=== PATIENT | female | born 2000 | race African-American/Black ===

== ENCOUNTER 2020-02-26 05:52 | Inpatient (IN) ==
[2020-02-26] MEDS ORDERED: ONDANSETRON 4 MG/2 ML VIAL IV PRN (05:59)
[2020-02-26] MEDS ORDERED: LACTATED RINGERS 1,000 ML IV ONE ×2 (05:59→17:34)
[2020-02-26] MEDS ORDERED: OXYTOCIN/LR 20 UNIT/1,000 ML BAG IV SCH (06:00)
[2020-02-26] MEDS ORDERED: LACTATED RINGERS 1,000 ML IV SCH (06:00)
[2020-02-26 06:28] LABS: Basophils % 0.2 % (0.0-0.8); Eosinophils # 0.1 10*3/uL (0.0-0.87); Eosinophils % 0.7 % (0.00-10.9); Hematocrit 30.7 VOL% (35.7-47.0); Hemoglobin 9.7 GM/DL (12.0-16.0); Immature Granulocytes Absolute 0.16 #; Lymphocytes # 2.2 10*3/uL (1.4-4.0); Lymphocytes % 13.6 % (21.3-54.2); Mean Corpuscular HGB Conc 31.6 GM/DL (32-36); Mean Corpuscular Volume 79.1 FL (87-102); Monocytes % 4.6 % (1.7-12.7); Neutrophils % 79.9 % (38.7-73.9); Platelet Count 251 T/CUMM (130-400); Red Blood Count 3.88 MC/CUMM (3.8-5.5); Red Cell Distribution Width 15.8 % (9.3-17.3); White Blood Count 16.3 T/CUMM (4-12)
[2020-02-26] MEDS ORDERED: AMPICILLIN INJ 2,000 MG in SODIUM CHLORIDE 0.9% 100 ML IV ONE (06:36)
[2020-02-26 07:02] LABS: Albumin 2.6 G/DL (3.4-5.0); Bilirubin,Total 0.4 MG/DL (0.2-1.0); Calcium 8.9 MG/DL (8.5-10.1); Osmolality,Calculated 262.4 MOS/KG (273-304); Total Protein 7.9 G/DL (6.4-8.3)
[2020-02-26] MEDS ORDERED: DINOPROSTONE VAG GEL 10 MG SYRINGE VAG ONE (08:00)
[2020-02-26] MEDS: AMPICILLIN INJ 1,000 MG in SODIUM CHLORIDE 0.9% 100 ML IV SCH ×3 (12:49→23:09)
[2020-02-26] MEDS ORDERED: BUTORPHANOL 2 MG/ML VIAL IV PRN (17:24)
[2020-02-26] MEDS ORDERED: NALOXONE 0.4 MG/ML VIAL IV PRN (17:34)
[2020-02-26] MEDS ORDERED: hydrOXYzine HCL 25 MG/1 ML VIAL IM PRN (17:34)
[2020-02-26] MEDS ORDERED: PROMETHAZINE 25 MG/1 ML VIAL IM ONE (17:34)
[2020-02-26] MEDS ORDERED: diphenhydrAMINE 50 MG/1 ML VIAL IV PRN ×2 (17:34)
[2020-02-26] MEDS ORDERED: ePHEDrine 50 MG/ML VIAL IV PRN (17:34)
[2020-02-26] MEDS ORDERED: FAMOTIDINE 20 MG/2 ML VIAL IV ONE (17:34)
[2020-02-26] MEDS ORDERED: CITRIC ACID/SODIUM CITRATE 30 ML UDCUP PO ONE (17:34)
[2020-02-26] MEDS ORDERED: fentaNYL 2 MCG/ROPIV 0.2% EPID 100 ML EPIDURAL SCH (18:00)
[2020-02-26] MEDS ORDERED: TERBUTALINE 1 MG/1 ML VIAL ONE (23:48)
[2020-02-26] MEDS ORDERED: TERBUTALINE 1 MG/1 ML VIAL SUBCUT ONE (23:48)
[2020-02-26] MEDS ORDERED: LIDOCAINE MPF 2% /EPI 20 ML VIAL ONE (23:56)
[2020-02-26] MEDS ORDERED: OXYTOCIN/LR 30 UNIT/1,000 ML BAG IV ONE (23:56)
[2020-02-26] MEDS ORDERED: MORPHINE 10 MG/10 ML VIAL ONE (23:56)
[2020-02-26] MEDS ORDERED: OXYTOCIN 10 UNIT/ML VIAL ONE (23:57)
[2020-02-27] MEDS ORDERED: OXYTOCIN/LR 30 UNIT/1,000 ML BAG IV ONE (00:01)
[2020-02-27] MEDS ORDERED: OXYTOCIN 10 UNIT/ML VIAL IM ONE (00:01)
[2020-02-27 00:38] LABS: Cord Arterial Blood HCO3 20.2 MMOL/L
[2020-02-27 00:39] LABS: Cord Venous Blood HCO3 22.1 MMOL/L; Cord Venous Blood PCO2 42.6 MMHG; Cord Venous Blood PO2 24.9 MMHG
[2020-02-27] MEDS ORDERED: MAGNESIUM HYDROXIDE SUSP 30 ML UDCUP PO PRN (00:50)
[2020-02-27] MEDS ORDERED: RHO(D) IMMUNE GLOBULIN 300 MCG SYRINGE IM ONE (00:50)
[2020-02-27] MEDS ORDERED: IBUPROFEN 800 MG TABLET PO PRN (00:50)
[2020-02-27] MEDS ORDERED: ONDANSETRON 4 MG/2 ML VIAL IV PRN (00:50)
[2020-02-27] MEDS ORDERED: OXYTOCIN/LR 20 UNIT/1,000 ML BAG IV ONE (00:50)
[2020-02-27] MEDS ORDERED: SIMETHICONE CHEW 80 MG TABLET PO PRN (00:50)
[2020-02-27] MEDS ORDERED: ACETAMINOPHEN 325 MG TABLET PO PRN (00:50)
[2020-02-27] MEDS ORDERED: LABETALOL 100 MG/20 ML VIAL IV ONE (00:57)
[2020-02-27] MEDS ORDERED: LACTATED RINGERS 1,000 ML IV SCH (01:00)
[2020-02-27] MEDS: MULTIVITAMIN (PRENATAL) TABLET PO SCH (08:56)
[2020-02-27] MEDS: METOCLOPRAMIDE 10 MG TABLET PO SCH ×2 (08:57→16:43)
[2020-02-27] MEDS: DOCUSATE SODIUM 100 MG CAPSULE PO SCH ×2 (08:57→20:36)
[2020-02-27] MEDS: FERROUS SULFATE 325 MG TABLET PO SCH (09:07)
[2020-02-27] MEDS ORDERED: MAGNESIUM CITRATE 300 ML BOTTLE PO ONE (16:48)
[2020-02-27] MEDS ORDERED: ceFAZolin 1,000 MG in SYRINGE 1 EACH IV SCH (17:00)
[2020-02-28 06:02] LABS: Basophils % 0.1 % (0.0-0.8); Eosinophils # 0.1 10*3/uL (0.0-0.87); Eosinophils % 0.7 % (0.00-10.9); Hematocrit 27.3 VOL% (35.7-47.0); Hemoglobin 8.5 GM/DL (12.0-16.0); Immature Granulocytes % 0.7 %; Immature Granulocytes Absolute 0.12 #; Lymphocytes # 1.6 10*3/uL (1.4-4.0); Lymphocytes % 9.3 % (21.3-54.2); Mean Corpuscular HGB Conc 31.1 GM/DL (32-36); Mean Corpuscular Volume 79.8 FL (87-102); Mean Platelet Volume 11.1 FL (9.6-12.0); Monocytes % 3.9 % (1.7-12.7); Neutrophils % 85.3 % (38.7-73.9); Platelet Count 214 T/CUMM (130-400); Red Blood Count 3.42 MC/CUMM (3.8-5.5); Red Cell Distribution Width 15.9 % (9.3-17.3)
[2020-02-28] MEDS: MULTIVITAMIN (PRENATAL) TABLET PO SCH (09:43)
[2020-02-28] MEDS: FERROUS SULFATE 325 MG TABLET PO SCH ×3 (09:46→21:09)
[2020-02-28] MEDS: DOCUSATE SODIUM 100 MG CAPSULE PO SCH ×2 (09:46→21:01)
[2020-02-28] MEDS ORDERED: RHO(D) IMMUNE GLOBULIN 300 MCG SYRINGE IM ONE (10:30)
[2020-02-29 07:31] VITALS: BP 104/62
[2020-02-29] MEDS: DOCUSATE SODIUM 100 MG CAPSULE PO SCH (09:25)
[2020-02-29] MEDS: MULTIVITAMIN (PRENATAL) TABLET PO SCH (09:25)
[2020-02-29] MEDS: FERROUS SULFATE 325 MG TABLET PO SCH ×2 (09:25→09:33)
== END 2020-02-29 11:30 | disposition home or self-care (01) | DRG 540 ==
LOC: N.LDOUT 05:52 → N.LD 05:54 → N.OB 02-27 08:23
PROVIDERS: ADMIT Obstetrics & Gynecology; ATTEND Obstetrics & Gynecology
PROC: LDCSECT (ICD-10-PCS; 2020-02-27)